=== PATIENT | female | born 1955 | race American Indian/Alaskan Native ===

== ENCOUNTER 2020-07-17 15:00 | Inpatient (IN) | payer MEDICAID ==
--- NOTE | 2020-07-17 19:53 | XRay Report ---
XR chest routine 2V INDICATION / CLINICAL INFORMATION: shortness of breath. COMPARISON: 07/09/2020 FINDINGS: SUPPORT DEVICES: Unchanged left PICC. HEART / MEDIASTINUM: Unchanged. LUNGS / PLEURA: Lungs are clear. Costophrenic sulci are sharp. No pneumothorax. ADDITIONAL FINDINGS: No significant additional findings. IMPRESSION: 1. No acute findings. Signer Name: Joel Hemphill MD Signed: 07/17/2020 7:48 PM Workstation Name: [id number]
[2020-07-17 20:39] LABS: Alanine Aminotransferase 13 units/L (7-56); Albumin 3.4 g/dL (3.9-5); BUN/Creatinine Ratio 28; Blood Urea Nitrogen 33 mg/dL (7-17); Calcium 9.3 mg/dL (8.4-10.2); Hematocrit 46.7 % (30.3-42.9); Hemoglobin 14.9 gm/dl (10.1-14.3); Hemolysis Index 169; Mean Corpuscular HGB Conc 32 % (30-34); Mean Corpuscular Volume 89 fl (79-97); Platelet Count 320 K/mm3 (140-440); Red Blood Count 5.24 M/mm3 (3.65-5.03)
[2020-07-17 20:41] LABS: Basophils % (Auto) 0.1 % (0.0-1.8); Eosinophils % (Auto) 0.1 % (0.0-4.3); Lymphocytes # (Auto) 0.8 K/mm3 (1.2-5.4); Lymphocytes % (Auto) 14.9 % (13.4-35.0); Monocytes % (Auto) 13.4 % (0.0-7.3)
[2020-07-17 20:42] LABS: Monocytes # (Auto) 0.7 K/mm3 (0.0-0.8)
[2020-07-17] MEDS ORDERED: SODIUM CHLORIDE 0.9% 1000 ML 1,000 ML IV ONE (23:07)
[2020-07-17] MEDS ORDERED: INSULIN REGULAR, HUMAN 100 UNIT/ML 3ML VIAL IV ONE (23:07)
[2020-07-17] MEDS ORDERED: SODIUM POLYSTYRENE 15 GM/60 ML ORAL LIQD PO ONE (23:07)
[2020-07-17] MEDS ORDERED: SODIUM BICARB 8.4% 50 MEQ/50 ML SYRINGE IV ONE (23:07)
[2020-07-17] MEDS ORDERED: DEXTROSE 50% IN WATER (25GM) 50 ML SYRINGE IV ONE (23:08)
[2020-07-17] MEDS ORDERED: INSULIN REGULAR, HUMAN 100 UNITS/1 ML ONE (23:30)
--- NOTE | 2020-07-17 23:40 | Emergency Department Report ---
ED General Adult HPI - General Chief complaint: Dyspnea/Respdistress Stated complaint: SOB Time Seen by Provider: 07/17/20 23:00 Source: patient, EMS Mode of arrival: Wheelchair Limitations: No Limitations - History of Present Illness Initial comments: Patient is a 65-year-old F Mauritian female who has a history of throat cancer currently trach dependent on oxygen as well as a history of COPD hypertension coronary artery disease who is presenting with 4 days of cough congestion shortness of breath. Patient states he feels [place] trach is clogged. States she has been feeling ill for the last several days. She denies any fever body aches nausea vomiting diarrhea at this time. - Related Data Allergies Allergy/AdvReac Type Severity Reaction Status Date / Time ampicillin Allergy Unknown Verified 07/17/20 15:21 lisinopril Allergy Unknown Verified 07/17/20 15:21 ED Review of Systems ROS: Stated complaint: SOB Other details as noted in HPI Comment: All other systems reviewed and negative ED Past Medical Hx - Past Medical History Previous Medical History?: Yes Hx Hypertension: Yes Hx Heart Attack/AMI: Yes Hx GERD: Yes Hx of Cancer: Yes Hx Asthma: Yes Hx COPD: Yes - Surgical History Past Surgical History?: Yes Additional Surgical History: trache ED Physical Exam - General Limitations: No Limitations General appearance: alert, in no apparent distress - Head Head exam: Present: atraumatic, normocephalic - Eye Eye exam: Present: normal appearance, PERRL, EOMI - ENT ENT exam: Present: mucous membranes moist - Neck Neck exam: Present: normal inspection - Respiratory Respiratory exam: Present: normal lung sounds bilaterally. Absent: respiratory distress, wheezes, rales, rhonchi - Cardiovascular Cardiovascular Exam: Present: regular rate, normal rhythm, normal heart sounds. Absent: systolic murmur, diastolic murmur, rubs, gallop - GI/Abdominal GI/Abdominal exam: Present: soft, normal bowel sounds. Absent: distended, tenderness, guarding, rebound - Extremities Exam Extremities exam: Present: normal inspection - Back Exam Back exam: Present: normal inspection - Neurological Exam Neurological exam: Present: alert, oriented X3 - Psychiatric Psychiatric exam: Present: normal affect, normal mood - Skin Skin exam: Present: warm, dry, intact, normal color. Absent: rash ED Course Vital Signs 07/17/20 15:21 Temperature 97.4 F L Pulse Rate 98 H Respiratory 18 Rate Blood Pressure 101/64 [Right] O2 Sat by Pulse 95 Oximetry ED Medical Decision Making - Lab Data Result diagrams: 07/17/20 20:00 07/17/20 20:56 Lab Results 07/17/20 07/17/20 07/17/20 Range/Units 20:00 20:00 20:56 WBC 5.4 (4.5-11.0) K/mm3 RBC 5.24 H (3.65-5.03) M/mm3 Hgb 14.9 H (10.1-14.3) gm/dl Hct 46.7 H (30.3-42.9) % MCV 89 (79-97) fl MCH 28 (28-32) pg MCHC 32 (30-34) % RDW 17.0 H (13.2-15.2) % Plt Count 320 (140-440) K/mm3 Lymph % (Auto) 14.9 (13.4-35.0) % Ford % (Auto) 13.4 H (0.0-7.3) % Eos % (Auto) 0.1 (0.0-4.3) % Baso % (Auto) 0.1 (0.0-1.8) % Lymph # (Auto) 0.8 L (1.2-5.4) K/mm3 Ford # (Auto) 0.7 (0.0-0.8) K/mm3 Eos # (Auto) 0.0 (0.0-0.4) K/mm3 Baso # (Auto) 0.0 (0.0-0.1) K/mm3 Seg Neutrophils % 71.5 H (40.0-70.0) % Seg Neutrophils # 3.9 (1.8-7.7) K/mm3 Sodium 133 L (137-145) mmol/L Potassium 5.9 H 5.8 H (3.6-5.0) mmol/L Chloride 97.9 L (98-107) mmol/L Carbon Dioxide 23 (22-30) mmol/L Anion Gap 18 mmol/L BUN 33 H (7-17) mg/dL Creatinine 1.2 (0.6-1.2) mg/dL Estimated GFR 45 ml/min BUN/Creatinine Ratio 28 % Glucose 102 H (65-100) mg/dL Calcium 9.3 (8.4-10.2) mg/dL Total Bilirubin 0.70 (0.1-1.2) mg/dL AST 21 (5-40) units/L ALT 13 (7-56) units/L Alkaline Phosphatase 43 (35-129) units/L Troponin T < 0.010 (0.00-0.029) ng/mL NT-Pro-B Natriuret Pep 182.3 (0-900) pg/mL Total Protein 6.1 L (6.3-8.2) g/dL Albumin 3.4 L (3.9-5) g/dL Albumin/Globulin Ratio 1.3 % - Radiology Data Patient: ROBERTO PEACOCK MR#: [id number] : 1955 Acct:[id number] Age/Sex: 65 / F ADM Date: 07/17/20 Loc: ED Attending Dr: Ordering Physician: CHERYL PEREZ Date of Service: 07/17/20 Procedure(s): XR chest routine 2V Accession Number(s): [id number] cc: CHERYL PEREZ Fluoro Time In Minutes: XR chest routine 2V INDICATION / CLINICAL INFORMATION: shortness of breath. COMPARISON: 07/09/2020 FINDINGS: SUPPORT DEVICES: Unchanged left PICC. HEART / MEDIASTINUM: Unchanged. LUNGS / PLEURA: Lungs are clear. Costophrenic sulci are sharp. No pneumothorax. ADDITIONAL FINDINGS: No significant additional findings. IMPRESSION: 1. No acute findings. Signer Name: Joel Hemphill MD Signed: 07/17/2020 7:48 PM Workstation Name: [id number] - Medical Decision Making Patient is O2 sat appears normal and despite the shortness of breath there is no infiltrates on her chest x-ray and she does not appear to be any respiratory distress. I do not believe this is a bad idea to check the patient for COVID- 19. More importantly on her laboratory studies patient does show evidence of dehydration. She is prerenal and has a low sodium and chloride. Patient started on IV fluids. Patient's potassium was elevated and she was given a cocktail to lower potassium level and should be admitted to the hospitalist service for observation. Critical care attestation.: If time is entered above; I have spent that time in minutes in the direct care of this critically ill patient, excluding procedure time. ED Disposition Clinical Impression: Hyperkalemia, Acute kidney injury, Hyponatremia, Dyspnea Disposition: DC-09 OP ADMIT IP TO THIS HOSP Is pt being admited?: Yes Does the pt Need Aspirin: No Condition: Stable Time of Disposition: 23:39
[2020-07-18 02:04] LABS: C-Reactive Protein 0.2 mg/dL (0.00-1.30)
[2020-07-18] MEDS ORDERED: ONDANSETRON 4 MG/2 ML INJ IV PRN (02:07)
--- NOTE | 2020-07-18 04:00 | History and Physical Report ---
History of Present Illness Date of examination: 07/17/20 Date of admission: 07/17/20 23:40 Chief complaint: shortness of breath, cough,congestion History of present illness: History of presenting illness, patient is a 65 year old female with PMH of COPD, Throat Cancer s/p tracheostomy, CAD/[place], GERD, HTN presenting with shortness of breath, cough, congestion. There is no history of fever, chills, ,body ache , chest pain, nausea, vomiting or diaphoresis . Past History Past Medical History: acute [place], CAD, COPD, GERD, hypertension, other (THROAT CANCER) Past Surgical History: Other (TRACHEOSTOMY) Social history: no significant social history Family history: no significant family history Medications and Allergies Allergies Allergy/AdvReac Type Severity Reaction Status Date / Time ampicillin Allergy Unknown Verified 07/17/20 15:21 lisinopril Allergy Unknown Verified 07/17/20 15:21 Active Meds: Active Medications Heparin Sodium (Porcine) (Heparin) 5,000 unit SUB-Q Q12HR KEM Sodium Chloride (Nacl 0.9% 1000 Ml) 1,000 mls @ 75 mls/hr IV DIRECT KEM Ondansetron HCl (Zofran) 4 mg IV Q8H PRN PRN Reason: Nausea And Vomiting Review of Systems Constitutional: no fever, no chills, no sweats, no night sweats, no weakness Eyes: bilateral: other (NO BILATERAL EYE SYMPTOMS) Ears, nose, mouth and throat: no ear pain Breasts: deferred Cardiovascular: shortness of breath, no chest pain, no palpitations, no rapid/irregular heart beat, no syncope, no lightheadedness Respiratory: cough, shortness of breath, dyspnea on exertion, congestion, no cough with sputum, no excessive sputum, no hemoptysis, no wheezing Gastrointestinal: no abdominal pain, no nausea, no vomiting, no constipation, no change in bowel habits Musculoskeletal: no neck stiffness, no neck pain Integumentary: no rash, no pruritis, no redness, no sores, no wounds, no jaundice Neurological: weakness, no parathesias, no numbness, no tingling, no seizures, no syncope, no tremors, no ataxia, no vertigo, no headaches, no convulsions Psychiatric: no anxiety, no depression Endocrine: no polydipsia, no polyuria, no nocturia Hematologic/Lymphatic: no easy bruising Exam - Constitutional Vitals: Temp Pulse Resp BP Pulse Ox 97.6 F 63 18 129/69 96 07/18/20 03:14 07/18/20 03:14 07/18/20 03:14 07/18/20 03:14 07/18/20 03:14 General appearance: Present: mild distress - EENT Eyes: Present: PERRL, EOM intact ENT: hearing intact, clear oral mucosa - Neck Neck: Present: supple, normal ROM - Cardiovascular Rhythm: regular Heart Sounds: Present: S1 & S2. Absent: gallop, systolic murmur, diastolic murmur - Extremities Extremities: no ischemia, No edema Peripheral Pulses: within normal limits - Abdominal General gastrointestinal: Present: soft, non-tender, non-distended. Absent: tender, distended, rigid, hepatomegaly, splenomegaly, mass Female genitourinary: Present: deferred - Rectal Rectal Exam: deferred - Integumentary Integumentary: Present: clear, warm, dry - Musculoskeletal Musculoskeletal: strength equal bilaterally HEART Score - HEART Score Risk factors: 1-2 risk factors Troponin: Troponin T < 0.010 ng/mL (0.00-0.029) 07/17/20 20:00 Troponin: < normal limit - Critical Actions Critical Actions: 0-3 pts:0.9-1.7%risk of adverse cardiac event.Candidate for discharge Results - Labs CBC & Chem 7: 07/17/20 20:00 07/18/20 00:59 Labs: Laboratory Last Values WBC 5.4 K/mm3 (4.5-11.0) 07/17/20 20:00 RBC 5.24 M/mm3 (3.65-5.03) H 07/17/20 20:00 Hgb 14.9 gm/dl (10.1-14.3) H 07/17/20 20:00 Hct 46.7 % (30.3-42.9) H 07/17/20 20:00 MCV 89 fl (79-97) 07/17/20 20:00 MCH 28 pg (28-32) 07/17/20 20:00 MCHC 32 % (30-34) 07/17/20 20:00 RDW 17.0 % (13.2-15.2) H 07/17/20 20:00 Plt Count 320 K/mm3 (140-440) 07/17/20 20:00 Lymph % (Auto) 14.9 % (13.4-35.0) 07/17/20 20:00 Wood % (Auto) 13.4 % (0.0-7.3) H 07/17/20 20:00 Eos % (Auto) 0.1 % (0.0-4.3) 07/17/20 20:00 Baso % (Auto) 0.1 % (0.0-1.8) 07/17/20 20:00 Lymph # (Auto) 0.8 K/mm3 (1.2-5.4) L 07/17/20 20:00 Wood # (Auto) 0.7 K/mm3 (0.0-0.8) 07/17/20 20:00 Eos # (Auto) 0.0 K/mm3 (0.0-0.4) 07/17/20 20:00 Baso # (Auto) 0.0 K/mm3 (0.0-0.1) 07/17/20 20:00 Seg Neutrophils % 71.5 % (40.0-70.0) H 07/17/20 20:00 Seg Neutrophils # 3.9 K/mm3 (1.8-7.7) 07/17/20 20:00 D-Dimer 310.03 ng/mlDDU (0-234) H 07/18/20 00:59 Sodium 133 mmol/L (137-145) L 07/17/20 20:00 Potassium 5.8 mmol/L (3.6-5.0) H 07/17/20 20:56 Chloride 97.9 mmol/L (98-107) L 07/17/20 20:00 Carbon Dioxide 23 mmol/L (22-30) 07/17/20 20:00 Anion Gap 18 mmol/L 07/17/20 20:00 BUN 33 mg/dL (7-17) H 07/17/20 20:00 Creatinine 1.2 mg/dL (0.6-1.2) 07/17/20 20:00 Estimated GFR 45 ml/min 07/17/20 20:00 BUN/Creatinine Ratio 28 % 07/17/20 20:00 Glucose 122 mg/dL (65-100) H 07/18/20 00:59 Calcium 9.3 mg/dL (8.4-10.2) 07/17/20 20:00 Ferritin 248.6 ng/mL (10.0-200.0) H 07/18/20 00:59 Total Bilirubin 0.70 mg/dL (0.1-1.2) 07/17/20 20:00 AST 21 units/L (5-40) 07/17/20 20:00 ALT 13 units/L (7-56) 07/17/20 20:00 Alkaline Phosphatase 43 units/L (35-129) 07/17/20 20:00 Lactate Dehydrogenase 185 units/L (91-180) H 07/18/20 00:59 Troponin T < 0.010 ng/mL (0.00-0.029) 07/17/20 20:00 C-Reactive Protein 0.20 mg/dL (0.00-1.30) 07/18/20 00:59 NT-Pro-B Natriuret Pep 182.3 pg/mL (0-900) 07/17/20 20:00 Total Protein 6.1 g/dL (6.3-8.2) L 07/17/20 20:00 Albumin 3.4 g/dL (3.9-5) L 07/17/20 20:00 Albumin/Globulin Ratio 1.3 % 07/17/20 20:00 Assessment and Plan - Patient Problems (1) Dehydration Current Visit: Yes Status: Acute Plan to address problem: I.V NORMAL SALINE (2) Acute kidney injury Current Visit: Yes Status: Acute Plan to address problem: 1. NEOHROLOGY CONSULT 2. I.V NORMAL SALINE (3) Hyperkalemia Current Visit: Yes Status: Acute Plan to address problem: 1. PO KAYEXALET 2. BMP LEVEL
[2020-07-18] MEDS: SODIUM CHLORIDE 0.9% 1000 ML 1,000 ML IV SCH ×2 (05:12→17:46)
[2020-07-18 06:40] LABS: BUN/Creatinine Ratio 29; Blood Urea Nitrogen 29 mg/dL (7-17); Calcium 8.3 mg/dL (8.4-10.2); Hemolysis Index 33
[2020-07-18] MEDS ORDERED: ALUM-MAG HYDROXIDE-SIMETHICONE 200-200-20MG/5ML ORAL LIQD 30 ML PO PRN (09:00)
[2020-07-18] MEDS ORDERED: ACETAMINOPHEN 325 MG TAB PO PRN (09:00)
[2020-07-18 10:01] LABS: C-Reactive Protein 0.2 mg/dL (0.00-1.30)
[2020-07-18] MEDS: HEPARIN 5,000 UNIT/1 ML VIAL SUB-Q SCH ×3 (11:38→22:39)
--- NOTE | 2020-07-18 14:13 | Progress Note ---
<BERNABrandonADELAIDA - Last Filed: 07/18/20 14:24> Assessment and Plan - Patient Problems (1) Person under investigation for COVID-19 Current Visit: Yes Status: Acute Plan to address problem: 07/17 COVID-19 PCR negative (2) Acute kidney injury Current Visit: Yes Status: Acute (3) Dehydration Current Visit: Yes Status: Acute Plan to address problem: Presented with a BUN of 33,Cr 1.2 S/p 1 L normal saline in the emergency department NS IV fluid 07/18 BUN 29/Cr 1.0 Trend BMP (4) Hyperkalemia Current Visit: Yes Status: Resolved Plan to address problem: Presented with a potassium of 5.8 S/p D50, 10 units of insulin, sodium bicarbonate and Kionex 07/18 potassium 4.2 Trend BMP Intervene as needed (5) Hyponatremia Current Visit: Yes Status: Resolved Plan to address problem: Presented with a sodium of 133 S/p 1 L normal saline in the emergency department NS IV fluid 07/18 sodium 139 Trend BMP (6) Elevated d-dimer Current Visit: Yes Status: Acute Plan to address problem: Presented with a D-dimer of 310 07/18 D-dimer 699 / BLE Venous US pending (7) DVT prophylaxis Current Visit: Yes Status: Acute Plan to address problem: Heparin subcu SCDs bilateral extremities while in bed History Interval history: 65 year old female with hypertension, GERD, throat cancer s/p tracheostomy dependent on oxygen, COPD, CAD/[place] who presented to the emergency department on 07/17 with complaints of shortness of breath, cough and congestion for 4 days.- The emergency department revealed hyponatremia at 133, hyperkalemia at 5.8, hyp ochloremia at 97.9, elevated BUN and she received 1 L NS, D50/Insulin/Sodium bicarb/Kionex in the ED. Today she remains on supplemental oxygenation and the RN was asked to update home medication list. She was a COVID PUI and her PCR resulted as negative today. Hospitalist Physical - Constitutional Vitals: Temp Pulse Resp BP Pulse Ox 98.0 F 69 19 134/75 97 07/18/20 11:52 07/18/20 11:52 07/18/20 11:52 07/18/20 11:52 07/18/20 11:52 General appearance: Present: no acute distress - EENT Eyes: Present: PERRL, EOM intact ENT: hearing intact, clear oral mucosa - Neck Neck: Present: normal ROM - Respiratory Respiratory effort: normal Respiratory: bilateral: CTA, diminished - Cardiovascular Rhythm: regular Heart Sounds: Present: S1 & S2. Absent: systolic murmur, diastolic murmur - Extremities Extremities: no ischemia, pulses intact, pulses symmetrical, No edema, normal temperature, normal color, Full ROM Peripheral Pulses: within normal limits - Abdominal General gastrointestinal: soft, non-tender, non-distended, normal bowel sounds - Integumentary Integumentary: Present: warm, dry - Psychiatric Psychiatric: cooperative - Neurologic Neurologic: CNII-XII intact, no focal deficits, moves all extremities HEART Score - HEART Score Risk factors: 1-2 risk factors Troponin: Troponin T < 0.010 ng/mL (0.00-0.029) 07/17/20 20:00 Troponin: < normal limit - Critical Actions Critical Actions: 0-3 pts:0.9-1.7%risk of adverse cardiac event.Candidate for discharge Results - Labs CBC & Chem 7: 07/17/20 20:00 07/18/20 05:40 Labs: Laboratory Last Values WBC 5.4 K/mm3 (4.5-11.0) 07/17/20 20:00 RBC 5.24 M/mm3 (3.65-5.03) H 07/17/20 20:00 Hgb 14.9 gm/dl (10.1-14.3) H 07/17/20 20:00 Hct 46.7 % (30.3-42.9) H 07/17/20 20:00 MCV 89 fl (79-97) 07/17/20 20:00 MCH 28 pg (28-32) 07/17/20 20:00 MCHC 32 % (30-34) 07/17/20 20:00 RDW 17.0 % (13.2-15.2) H 07/17/20 20:00 Plt Count 320 K/mm3 (140-440) 07/17/20 20:00 Lymph % (Auto) 14.9 % (13.4-35.0) 07/17/20 20:00 Millard % (Auto) 13.4 % (0.0-7.3) H 07/17/20 20:00 Eos % (Auto) 0.1 % (0.0-4.3) 07/17/20 20:00 Baso % (Auto) 0.1 % (0.0-1.8) 07/17/20 20:00 Lymph # (Auto) 0.8 K/mm3 (1.2-5.4) L 07/17/20 20:00 Millard # (Auto) 0.7 K/mm3 (0.0-0.8) 07/17/20 20:00 Eos # (Auto) 0.0 K/mm3 (0.0-0.4) 07/17/20 20:00 Baso # (Auto) 0.0 K/mm3 (0.0-0.1) 07/17/20 20:00 Seg Neutrophils % 71.5 % (40.0-70.0) H 07/17/20 20:00 Seg Neutrophils # 3.9 K/mm3 (1.8-7.7) 07/17/20 20:00 D-Dimer 699.94 ng/mlDDU (0-234) H 07/18/20 09:22 Sodium 139 mmol/L (137-145) 07/18/20 05:40 Potassium 4.2 mmol/L (3.6-5.0) D 07/18/20 05:40 Chloride 105.4 mmol/L (98-107) 07/18/20 05:40 Carbon Dioxide 24 mmol/L (22-30) 07/18/20 05:40 Anion Gap 14 mmol/L 07/18/20 05:40 BUN 29 mg/dL (7-17) H 07/18/20 05:40 Creatinine 1.0 mg/dL (0.6-1.2) 07/18/20 05:40 Estimated GFR > 60 ml/min 07/18/20 05:40 BUN/Creatinine Ratio 29 % 07/18/20 05:40 Glucose 82 mg/dL (65-100) 07/18/20 05:40 Calcium 8.3 mg/dL (8.4-10.2) L 07/18/20 05:40 Ferritin 272.7 ng/mL (10.0-200.0) H 07/18/20 09:22 Total Bilirubin 0.70 mg/dL (0.1-1.2) 07/17/20 20:00 AST 21 units/L (5-40) 07/17/20 20:00 ALT 13 units/L (7-56) 07/17/20 20:00 Alkaline Phosphatase 43 units/L (35-129) 07/17/20 20:00 Lactate Dehydrogenase 298 units/L (91-180) H 07/18/20 09:22 Troponin T < 0.010 ng/mL (0.00-0.029) 07/17/20 20:00 C-Reactive Protein 0.20 mg/dL (0.00-1.30) 07/18/20 09:22 NT-Pro-B Natriuret Pep 182.3 pg/mL (0-900) 07/17/20 20:00 Total Protein 6.1 g/dL (6.3-8.2) L 07/17/20 20:00 Albumin 3.4 g/dL (3.9-5) L 07/17/20 20:00 Albumin/Globulin Ratio 1.3 % 07/17/20 20:00 Coronavirus (PCR) Negative (Negative) 07/18/20 Unknown Dailey/IV: Voiding Method Toilet IV Catheter Type [Right Wrist] Peripheral IV Active Medications - Current Medications Current Medications: Generic Name Dose Route Start Last Admin Trade Name Freq PRN Reason Stop Dose Admin Acetaminophen 650 mg 07/18/20 09:00 Tylenol PO Q4H PRN Pain MILD(1-3)/Fever >100.5/MATTHEWS Al Hydrox/Mg Hydrox/Simethicone 30 ml 07/18/20 09:00 Alum-Mag Hydrox-Simeth 105-059-20dn/5ml PO Q4H PRN Indigestion Heparin Sodium (Porcine) 5,000 unit 07/18/20 02:15 07/18/20 11:38 Heparin SUB-Q 5,000 unit Q12HR KEM Administration Sodium Chloride 1,000 mls @ 75 mls/hr 07/18/20 02:15 07/18/20 05:12 Nacl 0.9% 1000 Ml IV 75 mls/hr DIRECT KEM Administration Ondansetron HCl 4 mg 07/18/20 02:07 Zofran IV Q8H PRN Nausea And Vomiting Sodium Chloride 10 ml 07/18/20 10:00 07/18/20 11:38 Sodium Chloride Flush Syringe 10 Ml IV Not Given BID KEM <ETHAN REAGAN Max - Last Filed: 07/18/20 14:44> Assessment and Plan Assessment and plan: I agree with history, examination and assessment and plan as written by Adelaida Lynch JEWEL INSERTER. Patient admitted with shortness of breath, cough. She has a history of COPD. Examination showed clear breath sounds bilaterally Plan COVID-19 test performed-Covid negative D-dimer is elevated so we will check ultrasound lower extremity Doppler. CTPE ordered Continue IV hydration for TYRELL Continue to monitor renal function Possible DC tomorrow if stable. Hospitalist Physical - Constitutional Vitals: Temp Pulse Resp BP Pulse Ox 98.0 F 69 19 134/75 97 07/18/20 11:52 07/18/20 11:52 07/18/20 11:52 07/18/20 11:52 07/18/20 11:52 HEART Score - HEART Score Troponin: Troponin T < 0.010 ng/mL (0.00-0.029) 07/17/20 20:00 Results - Labs CBC & Chem 7: 07/17/20 20:00 07/18/20 05:40 Labs: Laboratory Last Values WBC 5.4 K/mm3 (4.5-11.0) 07/17/20 20:00 RBC 5.24 M/mm3 (3.65-5.03) H 07/17/20 20:00 Hgb 14.9 gm/dl (10.1-14.3) H 07/17/20 20:00 Hct 46.7 % (30.3-42.9) H 07/17/20 20:00 MCV 89 fl (79-97) 07/17/20 20:00 MCH 28 pg (28-32) 07/17/20 20:00 MCHC 32 % (30-34) 07/17/20 20:00 RDW 17.0 % (13.2-15.2) H 07/17/20 20:00 Plt Count 320 K/mm3 (140-440) 07/17/20 20:00 Lymph % (Auto) 14.9 % (13.4-35.0) 07/17/20 20:00 Millard % (Auto) 13.4 % (0.0-7.3) H 07/17/20 20:00 Eos % (Auto) 0.1 % (0.0-4.3) 07/17/20 20:00 Baso % (Auto) 0.1 % (0.0-1.8) 07/17/20 20:00 Lymph # (Auto) 0.8 K/mm3 (1.2-5.4) L 07/17/20 20:00 Millard # (Auto) 0.7 K/mm3 (0.0-0.8) 07/17/20 20:00 Eos # (Auto) 0.0 K/mm3 (0.0-0.4) 07/17/20 20:00 Baso # (Auto) 0.0 K/mm3 (0.0-0.1) 07/17/20 20:00 Seg Neutrophils % 71.5 % (40.0-70.0) H 07/17/20 20:00 Seg Neutrophils # 3.9 K/mm3 (1.8-7.7) 07/17/20 20:00 D-Dimer 699.94 ng/mlDDU (0-234) H 07/18/20 09:22 Sodium 139 mmol/L (137-145) 07/18/20 05:40 Potassium 4.2 mmol/L (3.6-5.0) D 07/18/20 05:40 Chloride 105.4 mmol/L (98-107) 07/18/20 05:40 Carbon Dioxide 24 mmol/L (22-30) 07/18/20 05:40 Anion Gap 14 mmol/L 07/18/20 05:40 BUN 29 mg/dL (7-17) H 07/18/20 05:40 Creatinine 1.0 mg/dL (0.6-1.2) 07/18/20 05:40 Estimated GFR > 60 ml/min 07/18/20 05:40 BUN/Creatinine Ratio 29 % 07/18/20 05:40 Glucose 82 mg/dL (65-100) 07/18/20 05:40 Calcium 8.3 mg/dL (8.4-10.2) L 07/18/20 05:40 Ferritin 272.7 ng/mL (10.0-200.0) H 07/18/20 09:22 Total Bilirubin 0.70 mg/dL (0.1-1.2) 07/17/20 20:00 AST 21 units/L (5-40) 07/17/20 20:00 ALT 13 units/L (7-56) 07/17/20 20:00 Alkaline Phosphatase 43 units/L (35-129) 07/17/20 20:00 Lactate Dehydrogenase 298 units/L (91-180) H 07/18/20 09:22 Troponin T < 0.010 ng/mL (0.00-0.029) 07/17/20 20:00 C-Reactive Protein 0.20 mg/dL (0.00-1.30) 07/18/20 09:22 NT-Pro-B Natriuret Pep 182.3 pg/mL (0-900) 07/17/20 20:00 Total Protein 6.1 g/dL (6.3-8.2) L 07/17/20 20:00 Albumin 3.4 g/dL (3.9-5) L 07/17/20 20:00 Albumin/Globulin Ratio 1.3 % 07/17/20 20:00 Coronavirus (PCR) Negative (Negative) 07/18/20 Unknown Dailey/IV: Voiding Method Toilet IV Catheter Type [Right Wrist] Peripheral IV Active Medications - Current Medications Current Medications: Generic Name Dose Route Start Last Admin Trade Name Freq PRN Reason Stop Dose Admin Acetaminophen 650 mg 07/18/20 09:00 Tylenol PO Q4H PRN Pain MILD(1-3)/Fever >100.5/MATTHEWS Al Hydrox/Mg Hydrox/Simethicone 30 ml 07/18/20 09:00 Alum-Mag Hydrox-Simeth 115-842-93bm/5ml PO Q4H PRN Indigestion Heparin Sodium (Porcine) 5,000 unit 07/18/20 02:15 07/18/20 11:38 Heparin SUB-Q 5,000 unit Q12HR KEM Administration Sodium Chloride 1,000 mls @ 75 mls/hr 07/18/20 02:15 07/18/20 05:12 Nacl 0.9% 1000 Ml IV 75 mls/hr DIRECT KEM Administration Ondansetron HCl 4 mg 07/18/20 02:07 Zofran IV Q8H PRN Nausea And Vomiting Sodium Chloride 10 ml 07/18/20 10:00 07/18/20 11:38 Sodium Chloride Flush Syringe 10 Ml IV Not Given BID KEM
--- NOTE | 2020-07-18 15:37 | Vascular Lab Report ---
DUPLEX DOPPLER LOWER EXTREMITY VEINS, BILATERAL INDICATION: Lower extremity pain. TECHNIQUE: Duplex doppler imaging was performed through the veins of both lower extremities using venous brooklynn brendan and other maneuvers. COMPARISON: None available. FINDINGS: Right Common femoral vein: Negative. Right Superficial femoral vein: Negative. Right Popliteal vein: Negative. Right Calf veins: Negative. Left Common femoral vein: Negative. Left Superficial femoral vein: Negative. Left Popliteal vein: Negative. Left Calf veins: Negative. Additional findings: None. IMPRESSION: Negative for DVT. Signer Name: Johan Miradna MD Signed: 07/18/2020 3:33 PM Workstation Name: [id number]
[2020-07-19] MEDS: SODIUM CHLORIDE 0.9% 1000 ML 1,000 ML IV SCH ×2 (06:41→17:46)
[2020-07-19] MEDS: HEPARIN 5,000 UNIT/1 ML VIAL SUB-Q SCH ×2 (09:54→22:26)
--- NOTE | 2020-07-19 14:07 | Progress Note ---
Assessment and Plan Assessment and plan: Patient Problems (1) Person under investigation for COVID-19 Current Visit: Yes Status: Acute Plan to address problem: 12/3 COVID-19 PCR negative (2) Acute kidney injury Current Visit: Yes Status: Acute (3) Acute hypoxic respiratory failure Current Visit: Yes Status: Acute Plan to address problem: Continue oxygen supplementation (4) Hyperkalemia Current Visit: Yes Status: Resolved Plan to address problem: Presented with a potassium of 5.8 S/p D50, 10 units of insulin, sodium bicarbonate and Kionex / potassium 4.2 Trend BMP Intervene as needed (5) Hyponatremia Current Visit: Yes Status: Resolved Plan to address problem: Presented with a sodium of 133 S/p 1 L normal saline in the emergency department NS IV fluid / sodium 139 Trend BMP (6) Elevated d-dimer Current Visit: Yes Status: Acute Plan to address problem: Presented with a D-dimer of 310 07/18 D-dimer 699 12/ BLE Venous US pending - CTPE pending (7) DVT prophylaxis Current Visit: Yes Status: Acute Plan to address problem: Heparin subcu SCDs bilateral extremities while in bed History Interval history: No complaints She is on 4L oxygen Needs a walk test CTA chest ordered to rule out PE Hospitalist Physical - Physical exam Narrative exam: VITAL SIGNS: Reviewed. GENERAL: Awake HEAD: No signs of head trauma. EYES: Pupils are equal. Extraocular motions intact. MOUTH: Oropharynx is normal. NECK: No adenopathy, no JVD. CHEST: Chest with diminished breath sounds bilaterally. No wheezes, rales, or rhonchi. CARDIAC: normal S1 and S2, without murmurs, gallops, or rubs. ABDOMEN: Soft, non tender and non distended. No rebound or guarding, and no masses palpated. Bowel Sounds normal. MUSCULOSKELETAL: No edema NEUROLOGIC EXAM: Alert and oriented x3. No focal neurologic deficits SKIN: No obvious lesions - Constitutional Vitals: Temp Pulse Resp BP Pulse Ox 98.5 F 73 20 133/96 98 07/19/20 13:14 07/19/20 13:14 07/19/20 13:14 07/19/20 13:14 07/19/20 13:14 HEART Score - HEART Score Risk factors: 1-2 risk factors Troponin: Troponin T < 0.010 ng/mL (0.00-0.029) 07/17/20 20:00 Troponin: < normal limit - Critical Actions Critical Actions: 0-3 pts:0.9-1.7%risk of adverse cardiac event.Candidate for discharge Results - Labs CBC & Chem 7: 07/17/20 20:00 07/18/20 05:40 Labs: Laboratory Last Values WBC 5.4 K/mm3 (4.5-11.0) 07/17/20 20:00 RBC 5.24 M/mm3 (3.65-5.03) H 07/17/20 20:00 Hgb 14.9 gm/dl (10.1-14.3) H 07/17/20 20:00 Hct 46.7 % (30.3-42.9) H 07/17/20 20:00 MCV 89 fl (79-97) 07/17/20 20:00 MCH 28 pg (28-32) 07/17/20 20:00 MCHC 32 % (30-34) 07/17/20 20:00 RDW 17.0 % (13.2-15.2) H 07/17/20 20:00 Plt Count 320 K/mm3 (140-440) 07/17/20 20:00 Lymph % (Auto) 14.9 % (13.4-35.0) 07/17/20 20:00 [place] % (Auto) 13.4 % (0.0-7.3) H 07/17/20 20:00 Eos % (Auto) 0.1 % (0.0-4.3) 07/17/20 20:00 Baso % (Auto) 0.1 % (0.0-1.8) 07/17/20 20:00 Lymph # (Auto) 0.8 K/mm3 (1.2-5.4) L 07/17/20 20:00 [place] # (Auto) 0.7 K/mm3 (0.0-0.8) 07/17/20 20:00 Eos # (Auto) 0.0 K/mm3 (0.0-0.4) 07/17/20 20:00 Baso # (Auto) 0.0 K/mm3 (0.0-0.1) 07/17/20 20:00 Seg Neutrophils % 71.5 % (40.0-70.0) H 07/17/20 20:00 Seg Neutrophils # 3.9 K/mm3 (1.8-7.7) 07/17/20 20:00 D-Dimer 699.94 ng/mlDDU (0-234) H 07/18/20 09:22 Sodium 139 mmol/L (137-145) 07/18/20 05:40 Potassium 4.2 mmol/L (3.6-5.0) D 07/18/20 05:40 Chloride 105.4 mmol/L (98-107) 07/18/20 05:40 Carbon Dioxide 24 mmol/L (22-30) 07/18/20 05:40 Anion Gap 14 mmol/L 07/18/20 05:40 BUN 29 mg/dL (7-17) H 07/18/20 05:40 Creatinine 1.0 mg/dL (0.6-1.2) 07/18/20 05:40 Estimated GFR > 60 ml/min 07/18/20 05:40 BUN/Creatinine Ratio 29 % 07/18/20 05:40 Glucose 82 mg/dL (65-100) 07/18/20 05:40 Calcium 8.3 mg/dL (8.4-10.2) L 07/18/20 05:40 Ferritin 272.7 ng/mL (10.0-200.0) H 07/18/20 09:22 Total Bilirubin 0.70 mg/dL (0.1-1.2) 07/17/20 20:00 AST 21 units/L (5-40) 07/17/20 20:00 ALT 13 units/L (7-56) 07/17/20 20:00 Alkaline Phosphatase 43 units/L (35-129) 07/17/20 20:00 Lactate Dehydrogenase 298 units/L (91-180) H 07/18/20 09:22 Troponin T < 0.010 ng/mL (0.00-0.029) 07/17/20 20:00 C-Reactive Protein 0.20 mg/dL (0.00-1.30) 07/18/20 09:22 NT-Pro-B Natriuret Pep 182.3 pg/mL (0-900) 07/17/20 20:00 Total Protein 6.1 g/dL (6.3-8.2) L 07/17/20 20:00 Albumin 3.4 g/dL (3.9-5) L 07/17/20 20:00 Albumin/Globulin Ratio 1.3 % 07/17/20 20:00 Procalcitonin < 0.05 ng/mL (<0.15) 07/18/20 09:22 Coronavirus (PCR) Negative (Negative) 07/18/20 Unknown Dailey/IV: Voiding Method Bedside Commode IV Catheter Type [Right Wrist] Peripheral IV Active Medications - Current Medications Current Medications: Generic Name Dose Route Start Last Admin Trade Name Freq PRN Reason Stop Dose Admin Acetaminophen 650 mg 07/18/20 09:00 Tylenol PO Q4H PRN Pain MILD(1-3)/Fever >100.5/MATTHEWS Al Hydrox/Mg Hydrox/Simethicone 30 ml 07/18/20 09:00 Alum-Mag Hydrox-Simeth 835-117-74ew/5ml PO Q4H PRN Indigestion Heparin Sodium (Porcine) 5,000 unit 07/18/20 02:15 07/19/20 09:54 Heparin SUB-Q 5,000 unit Q12HR KEM Administration Sodium Chloride 1,000 mls @ 75 mls/hr 07/18/20 02:15 07/19/20 06:41 Nacl 0.9% 1000 Ml IV 75 mls/hr DIRECT KEM Administration Ondansetron HCl 4 mg 07/18/20 02:07 Zofran IV Q8H PRN Nausea And Vomiting Sodium Chloride 10 ml 07/18/20 10:00 07/19/20 09:54 Sodium Chloride Flush Syringe 10 Ml IV 10 ml BID KEM Administration
[2020-07-20] MEDS: SODIUM CHLORIDE 0.9% 1000 ML 1,000 ML IV SCH (05:24)
[2020-07-20] MEDS: HEPARIN 5,000 UNIT/1 ML VIAL SUB-Q SCH ×2 (09:01→21:45)
--- NOTE | 2020-07-20 13:06 | Progress Note ---
Assessment and Plan Assessment and plan: Patient Problems (1) Person under investigation for COVID-19 Current Visit: Yes Status: Acute Plan to address problem: 12/3 COVID-19 PCR negative (2) Acute kidney injury Current Visit: Yes Status: Acute Resolved (3) Acute hypoxic respiratory failure Current Visit: Yes Status: Acute Plan to address problem: Continue oxygen supplementation Needs oxygen on discharge. sales and business development manager to provide (4) Hyperkalemia Current Visit: Yes Status: Resolved Plan to address problem: Presented with a potassium of 5.8 S/p D50, 10 units of insulin, sodium bicarbonate and Kionex 12/ potassium 4.2 Trend BMP Intervene as needed (5) Hyponatremia Current Visit: Yes Status: Resolved Plan to address problem: Presented with a sodium of 133 S/p 1 L normal saline in the emergency department NS IV fluid / sodium 139 Trend BMP (6) Elevated d-dimer Current Visit: Yes Status: Acute Plan to address problem: Presented with a D-dimer of 310 07/18 D-dimer 699 / BLE Venous US pending - CTPE tried twice but could not be performed. VQ scan ordered. Maintain n.p .o. after midnight (7) DVT prophylaxis Current Visit: Yes Status: Acute Plan to address problem: Heparin subcu SCDs bilateral extremities while in bed History Interval history: No complaints Needs oxygen after a walk test performed shows hypoxia. sales and business development manager informed as per RN CTA chest ordered to rule out PE Hospitalist Physical - Physical exam Narrative exam: VITAL SIGNS: Reviewed. GENERAL: Awake HEAD: No signs of head trauma. EYES: Pupils are equal. Extraocular motions intact. MOUTH: Oropharynx is normal. NECK: No adenopathy, no JVD. CHEST: Chest with diminished breath sounds bilaterally. No wheezes, rales, or rhonchi. CARDIAC: normal S1 and S2, without murmurs, gallops, or rubs. ABDOMEN: Soft, non tender and non distended. No rebound or guarding, and no masses palpated. Bowel Sounds normal. MUSCULOSKELETAL: No edema NEUROLOGIC EXAM: Alert and oriented x3. No focal neurologic deficits SKIN: No obvious lesions - Constitutional Vitals: Temp Pulse Resp BP Pulse Ox 99.5 F 86 20 156/84 97 07/19/20 21:16 07/19/20 21:16 07/19/20 22:00 07/19/20 21:16 07/19/20 22:00 HEART Score - HEART Score Risk factors: 1-2 risk factors Troponin: Troponin T < 0.010 ng/mL (0.00-0.029) 07/17/20 20:00 Troponin: < normal limit - Critical Actions Critical Actions: 0-3 pts:0.9-1.7%risk of adverse cardiac event.Candidate for d ischarge Results - Labs CBC & Chem 7: 07/17/20 20:00 07/18/20 05:40 Labs: Laboratory Last Values WBC 5.4 K/mm3 (4.5-11.0) 07/17/20 20:00 RBC 5.24 M/mm3 (3.65-5.03) H 07/17/20 20:00 Hgb 14.9 gm/dl (10.1-14.3) H 07/17/20 20:00 Hct 46.7 % (30.3-42.9) H 07/17/20 20:00 MCV 89 fl (79-97) 07/17/20 20:00 MCH 28 pg (28-32) 07/17/20 20:00 MCHC 32 % (30-34) 07/17/20 20:00 RDW 17.0 % (13.2-15.2) H 07/17/20 20:00 Plt Count 320 K/mm3 (140-440) 07/17/20 20:00 Lymph % (Auto) 14.9 % (13.4-35.0) 07/17/20 20:00 [place] % (Auto) 13.4 % (0.0-7.3) H 07/17/20 20:00 Eos % (Auto) 0.1 % (0.0-4.3) 07/17/20 20:00 Baso % (Auto) 0.1 % (0.0-1.8) 07/17/20 20:00 Lymph # (Auto) 0.8 K/mm3 (1.2-5.4) L 07/17/20 20:00 [place] # (Auto) 0.7 K/mm3 (0.0-0.8) 07/17/20 20:00 Eos # (Auto) 0.0 K/mm3 (0.0-0.4) 12/03/20 20:00 Baso # (Auto) 0.0 K/mm3 (0.0-0.1) 07/17/20 20:00 Seg Neutrophils % 71.5 % (40.0-70.0) H 07/17/20 20:00 Seg Neutrophils # 3.9 K/mm3 (1.8-7.7) 07/17/20 20:00 D-Dimer 523.45 ng/mlDDU (0-234) H 07/20/20 05:37 Sodium 139 mmol/L (137-145) 07/18/20 05:40 Potassium 4.2 mmol/L (3.6-5.0) D 07/18/20 05:40 Chloride 105.4 mmol/L (98-107) 07/18/20 05:40 Carbon Dioxide 24 mmol/L (22-30) 07/18/20 05:40 Anion Gap 14 mmol/L 07/18/20 05:40 BUN 29 mg/dL (7-17) H 07/18/20 05:40 Creatinine 1.0 mg/dL (0.6-1.2) 07/18/20 05:40 Estimated GFR > 60 ml/min 07/18/20 05:40 BUN/Creatinine Ratio 29 % 07/18/20 05:40 Glucose 82 mg/dL (65-100) 07/18/20 05:40 Calcium 8.3 mg/dL (8.4-10.2) L 07/18/20 05:40 Ferritin 235.5 ng/mL (10.0-200.0) H 07/20/20 05:37 Total Bilirubin 0.70 mg/dL (0.1-1.2) 07/17/20 20:00 AST 21 units/L (5-40) 07/17/20 20:00 ALT 13 units/L (7-56) 07/17/20 20:00 Alkaline Phosphatase 43 units/L (35-129) 07/17/20 20:00 Lactate Dehydrogenase 158 units/L (91-180) 07/20/20 05:37 Troponin T < 0.010 ng/mL (0.00-0.029) 07/17/20 20:00 C-Reactive Protein 1.00 mg/dL (0.00-1.30) 07/20/20 05:37 NT-Pro-B Natriuret Pep 182.3 pg/mL (0-900) 07/17/20 20:00 Total Protein 6.1 g/dL (6.3-8.2) L 07/17/20 20:00 Albumin 3.4 g/dL (3.9-5) L 07/17/20 20:00 Albumin/Globulin Ratio 1.3 % 07/17/20 20:00 Procalcitonin < 0.05 ng/mL (<0.15) 07/18/20 09:22 Coronavirus (PCR) Negative (Negative) 07/18/20 Unknown Dailey/IV: Voiding Method Bedpan IV Catheter Type [Right INT / Saline Lock Antecubital] IV Catheter Type [Right Wrist] Peripheral IV Active Medications - Current Medications Current Medications: Generic Name Dose Route Start Last Admin Trade Name Freq PRN Reason Stop Dose Admin Acetaminophen 650 mg 07/18/20 09:00 Tylenol PO Q4H PRN Pain MILD(1-3)/Fever >100.5/MATTHEWS Al Hydrox/Mg Hydrox/Simethicone 30 ml 07/18/20 09:00 Alum-Mag Hydrox-Simeth 630-243-75jd/5ml PO Q4H PRN Indigestion Heparin Sodium (Porcine) 5,000 unit 07/18/20 02:15 07/20/20 09:01 Heparin SUB-Q 5,000 unit Q12HR KEM Administration Sodium Chloride 1,000 mls @ 75 mls/hr 07/18/20 02:15 07/20/20 05:24 Nacl 0.9% 1000 Ml IV 75 mls/hr DIRECT KEM Administration Ondansetron HCl 4 mg 07/18/20 02:07 Zofran IV Q8H PRN Nausea And Vomiting Sodium Chloride 10 ml 07/18/20 10:00 07/20/20 09:01 Sodium Chloride Flush Syringe 10 Ml IV 10 ml BID KEM Administration
[2020-07-21] MEDS: SODIUM CHLORIDE 0.9% 1000 ML 1,000 ML IV SCH (01:08)
--- NOTE | 2020-07-21 12:02 | Discharge Summary ---
Providers - Providers Date of Admission: 07/18/20 14:36 Date of discharge: 07/21/20 Attending physician: ETHAN REAGAN 07/19/20 13:50 Physical Therapy Evaluation and Treat [CONS] Routine Comment: Reason For Exam: Debility. 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 Today she remains on supplemental oxygenation and the RN was asked to update home medication list. She was a COVID PUI and her PCR resulted as negative today. Her chest xray shows no pna and does not need antibiotics. Patient reports she was supposed to have oxygen at home but this has not been delivered to her. Her ddimer was elevated and US doppler is negative. Attempts to perform a CTA chest was not possible as there was difficulty getting an IV access. I do not think she has a PE as her US doppler is negative and she is not tachycardic and she remains comfortable on oxygen which she states is her baseline. PE test was canceled. She had a walk test and will need oxygen. This has been arranged. She will follow up with her PCP and varnish finisher. Disposition: DC- TO HOME OR SELFCARE - Discharge Diagnoses (1) Person under investigation for COVID-19 Status: Acute (2) Cough Status: Chronic (3) Hyperkalemia Status: Resolved (4) Hyponatremia Status: Resolved (5) Acute and chronic respiratory failure Status: Resolved Core Measure Documentation - Palliative Care Palliative Care/ Comfort Measures: Not Applicable - Core Measures Any of the following diagnoses?: none Exam - Physical Exam Narrative exam: VITAL SIGNS: Reviewed. GENERAL: Awake HEAD: No signs of head trauma. EYES: Pupils are equal. Extraocular motions intact. MOUTH: Oropharynx is normal. NECK: No adenopathy, no JVD. CHEST: Chest with diminished breath sounds bilaterally. No wheezes, rales, or rhonchi. CARDIAC: normal S1 and S2, without murmurs, gallops, or rubs. ABDOMEN: Soft, non tender and non distended. No rebound or guarding, and no masses palpated. Bowel Sounds normal. MUSCULOSKELETAL: No edema NEUROLOGIC EXAM: Alert and oriented x3. No focal neurologic deficits SKIN: No obvious lesions - Constitutional Vitals: Temp Pulse Resp BP Pulse Ox 98.9 F 78 18 103/56 97 07/20/20 20:18 07/20/20 20:18 07/20/20 22:00 07/20/20 20:18 07/21/20 00:00 Plan Diet: low salt Durable Medical Equipment Needed Upon Discharge: Oxygen Additional Instructions: Continue home medications. Continue home oxygen. Follow up with your primary medical doctor in 1 week Follow up with: CHRISTINE GIBSON MD [Primary Care Provider] - 7 Days
[2020-07-21 13:00] VITALS: BP 141/89
== END 2020-07-21 14:00 | disposition home health service (06) | DRG 189 ==
LOC: EDSEX → ED 15:00 → 3A 23:40 → OBSVTOIN 07-18 14:36 → MERGE 07-18 14:36
PROVIDERS: ADMIT Internal Medicine; ATTEND Internal Medicine
DX: J96.21 Acute and chronic respiratory failure with hypoxia (principal); E87.1 Hypo-osmolality and hyponatremia; E87.5 Hyperkalemia; Z88.8 Allergy status to other drugs, medicaments and biological substances; J44.9 Chronic obstructive pulmonary disease, unspecified; I25.10 Atherosclerotic heart disease of native coronary artery without angina pectoris; I10 Essential (primary) hypertension; K21.9 Gastro-esophageal reflux disease without esophagitis; I25.2 Old myocardial infarction; Z93.0 Tracheostomy status; E86.0 Dehydration
CPT/HCPCS: 36415; 71046; 80048; 80053; 82728; 82947; 83615; 83880; 84132; 84145; 84484; 85025; 85379; 86140; 93005; 93970; 94760; 96374; 96375; G0378; J1644; J1815; J7030; U0003